=== PATIENT | female | born 1995 | race Caucasian/White ===

== ENCOUNTER → 2021-04-27 10:31 | Outpatient (CLI) | payer OTHER, SELFPAY ==
--- NOTE | 2021-04-27 10:33 | DI.RAD.S_ITS ---
PROCEDURE: XR LUMBAR SPINE 2-3V INDICATIONS: Evaluate and treat TECHNIQUE: 3 views of the lumbar spine were acquired. COMPARISON: None. FINDINGS: Bones: 5 [id number] vertebrae are present. There is normal bony alignment. No vertebral body compression fractures. No suspicious bony lesions. Soft tissues: Overlying bowel gas pattern is normal. No suspicious soft tissue calcifications. IMPRESSION: Normal L-spine. Dictated by: Herbert Ge RR Interpreted: Collin Wyman MD on 04/27/2021 at 10:57 Transcribed by: SIMONE on 04/27/2021 at 10:58 Approved by: Collin Wyman M.D. on 04/28/2021 at 9:31
== END ==
PROVIDERS: PCP Family Medicine; Referring Provider Family Medicine; Visit Provider Family Medicine
DX: M54.41 Lumbago with sciatica, right side (principal); G89.29 Other chronic pain
CPT/HCPCS: 72100

== ENCOUNTER 2021-08-23 09:00 | Outpatient (RCR) | payer OTHER, SELFPAY ==
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
--- NOTE | 2021-07-13 11:58 | PT.OPPOC ---
Addendum entered and electronically signed by Amber Brown, PT 07/13/21 11:58: . Original Note: Physical, Occupational & Speech Therapy At [facility] Current Diagnoses Other chronic pain (07/13/21) Lumbago with sciatica, right side (07/13/21) Other abnormalities of gait and mobility (07/13/21) Abnormal posture (07/13/21) Weakness (07/13/21) Visit Care Team Role Provider Type Alex Antunez MD Attending Provider Physician Primary Care Provider Referring Provider Specialty: [facility] Practice Address: [address] [place] [address], [facility] Email: [email or web address] Plan Of Care PT-OP-T Assessment and Plan Start: 05/18/21 18:35 Freq: Status: Active Protocol: Document 07/13/21 09:13 [facility] (Rec: 07/13/21 11:57 [facility] [id number]) Physical Therapy Assessment Goals posture Short Term Goal (STG) Pt will improve posture to dec pain in static positions as shown by improvement in VCT to 3/5 STG Duration 08/12 Skilled Nursing Goal (LTG) Pt will have improved gait and be able to do SLS 30 sec B w/ o lat lean or shear of trunk B 07/13-able on L but not R-still lat shear w/R LTG Duration 09/23 exercise Skilled Nursing Goal (LTG) Pt will be able to return to working out at least 3x/week w /o inc in pain greater than 3/ 10 07/13-doing PT exercises, sometimes works w/box and bag 01/11-does daily for about 30 min; has not run & wt lifting LTG Duration 09/12/21 strength Short Term Goal (STG) Pt will be indep w/HEP STG Duration achieved Skilled Nursing Goal (LTG) Pt will improve strength to to at least 4/5 LPM and EFT and 5/5 BLE strength w/o in pain to show improved stability to improve her mobility. 07/13-improved LTG Duration 09/12 LILIANA Impairment 20/50 Short Term Goal (STG) Pt will improve LILIANA score to no greater than 14/50 to show improved functional ability. STG Duration achieved ot 8/50 07/13 Skilled Nursing Goal (LTG) Pt will improve LILIANA score to no greater than 6/50 to show improved functional ability. LTG Duration 09/12/21 activities Short Term Goal (STG) Pt will be able to prop herself appropriately in bed in order to dec pain and be able to do bed mobility w/o signficiant inc in pain. STG Duration achieved [employer] Car [employer] Goal (LTG) Pt will be able to stand and sit for extended time w/o inc in pain greater than 3/10 in oerder ot allow pt to consider return to work. 07/13-works 6 hour shifts w/4-5/ 10 pain LTG Duration 09/12/21 Assessment Summary Assessment Pt has made excellent functional progress at this time. She is improving with strength, and has overall dec pain but still does require cueing for posture and body mechanics. She is encouraged to work on these during work day so she is dec amt of bending and twisting during job. Pt would benefit from cont PT to work on stability, strength, posture and body mechanics in order tod ec pain . Physical Therapy Plan Frequency and Duration Frequency of Treatment 1-2x/week Duration of Treatment 2 months Plan of Care Start Date 07/13/21 Plan of Care End Date 09/12/21 Therapeutic Interventions Therapeutic Interventions Aquatic Therapy,Balance Training,Gait Training,Home Exercise Program,Joint Mobilizations,Manual Therapy, Neuromuscular Re-education, Patient/Caregiver Education, Self-Care/Home Management,Soft Tissue Mobilization,Taping, Therapeutic Activities, Therapeutic Exercises Modalities Cold Pack/Ice Massage,Electric Stimulation,Hot Packs, Traction- Mechanical, Ultrasound Next Visit Focus/Plan Next Note Type Treatment Note Next Visit Plan cont to advance core stability exercises & work on stand posture & work on bending & lifting mechanics Plan of Care Dates Plan of Care Start Date 07/13/21 Plan of Care End Date 09/12/21 Electronically Signed by: Amber Brown, PT 07/13/21 4210 Please Sign and Return: I have reviewed this Plan of Care and certify that the skilled therapy services above are required to meet the patient?s needs. Physician Signature Date Printed Name and Credentials Clinical Instructor Signature Printed Name and Credentials
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
== END 2021-12-05 09:51 ==
LOC: PHYS 09:00
PROVIDERS: PCP Family Medicine; Referring Provider Family Medicine; Visit Provider Family Medicine
DX: M54.41 Lumbago with sciatica, right side (principal); G89.29 Other chronic pain; R53.1 Weakness; R26.89 Other abnormalities of gait and mobility; R29.3 Abnormal posture
CPT/HCPCS: 97010; 97110; 97140; 97162; 97530